=== PATIENT | male | born 1985 | race Hispanic/Latino ===

== ENCOUNTER → 2019-02-17 | Outpatient (CLI) | payer OTHER ==
[~2019-02-17] MED LIST: GASTROGRAFIN SOLUTION 30ML (Q9963) As Ordered ONE; ISOVUE-370 76% 100ML VIAL (Q9967) As Ordered ONE
--- NOTE | 2019-02-17 19:49 | REP ---
Clinical: Right upper quadrant pain. Technique: Axial pre and postcontrast images of the abdomen using oral and 100 ml Isovue 370 intravenous contrast material with coronal and sagittal re-formations. Findings: Lung bases are clear. Visualized heart and pericardium normal. Fatty infiltration to the liver noted without focal hepatic lesion. Spleen, pancreas, gallbladder, bilateral adrenal glands and kidneys are normal. Visualized enteric system is unremarkable. Normal terminal ileum and appendix are identified. No ascites. No free air. No adenopathy. Abdominal aorta and vasculature normal. Musculoskeletal structures intact. Impression: Hepatic steatosis. Electronically Signed by Rodolfo Hoover MD 02/17/2019 07:40 P
== END ==
LOC: M RAD 15:27
PROVIDERS: ATTEND Physician Assistant
DX: R10.11 Right upper quadrant pain (principal); K76.0 Fatty (change of) liver, not elsewhere classified
CPT/HCPCS: 74170; Q9963; Q9967

== ENCOUNTER 2019-05-05 12:34 | Day surgery (SDC) | payer OTHER ==
[~2019-05-05] VITALS: Ht 160 cm; Wt 91.2 kg
[~2019-05-05 12:34] MED LIST changes: +CELE1CAP7 PO; -GASTROGRAFIN SOLUTION 30ML (Q9963) As Ordered ONE; -ISOVUE-370 76% 100ML VIAL (Q9967) As Ordered ONE; +NS 1,000 ML IV ONE; +OMEP-221 PO
[2019-05-05] MEDS ORDERED: LIDOCAINE 2% INJ 100 MG/5 ML SDV (FOR ANES.) As Ordered ONE (13:06)
[2019-05-05] MEDS ORDERED: PROPOFOL 200 MG/20 ML VIAL As Ordered ONE (13:06)
[2019-05-05] MEDS ORDERED: fentaNYL 100 MCG/2 ML INJECTION (J3010) As Ordered ONE (13:58)
--- NOTE | 2019-05-05 14:12 | ROOR ---
Patient Name: Eddie Power Procedure Date: 05/05/2019 1:52 PM Date of : 1985 Age: 33 Room: [facility] Gender: Male Note Status: Finalized Procedure: Upper Endoscopy + Biopsies Indications: Abdominal pain in the right upper quadrant, Abdominal distention, Nausea Providers: Fei Villagomez MD Referring MD: ARAM HICKS MD Requesting Provider: Medicines: Monitored Anesthesia Care Complications: No immediate complications. Procedure: Pre-Anesthesia Assessment: - The heart rate, respiratory rate, oxygen saturations, blood pressure, adequacy of pulmonary ventilation, and response to care were monitored throughout the procedure. The Endoscope was introduced through the mouth, and advanced to the second part of duodenum. The upper GI endoscopy was accomplished without difficulty. The patient tolerated the procedure well. Findings: The Z-line was irregular and was found 40 cm from the incisors. Multiple biopsies were obtained with cold forceps for evaluation to rule out Sainz's Esophagus randomly at the gastroesophageal junction. Localized mild inflammation characterized by congestion (edema), erosions and erythema was found in the gastric antrum. Biopsies were taken with a cold forceps for Helicobacter pylori testing. The exam of the duodenum was otherwise normal. Impression: - Z-line irregular, 40 cm from the incisors. - Mucosal changes suspicious for gastritis. Biopsied. - Multiple biopsies were obtained at the gastroesophageal junction. - The examination was otherwise normal. Recommendation: - Patient has a contact number available for emergencies. The signs and symptoms of potential delayed complications were discussed with the patient. Return to normal activities tomorrow. Written discharge instructions were provided to the patient. - High fiber diet. - Discharge patient to home. - Continue present medications. - Await pathology results. - Telephone GI clinic for pathology results in 1 week. - Return to referring physician. - The findings and recommendations were discussed with the patient's family. Fei Villagomez MD Fei Villagomez MD 05/05/2019 2:11:50 PM Electronically signed by Fei Villagomez MD Number of Addenda: 0 Note Initiated On: 05/05/2019 1:52 PM Estimated Blood Loss: Estimated blood loss: none.
[2019-05-05 14:30] VITALS: BP 148/95
== END 2019-05-05 14:47 | disposition home or self-care (01) ==
LOC: M OPP 12:34
PROVIDERS: ATTEND Internal Medicine Gastroenterology
DX: K22.8 Other specified diseases of esophagus (principal); K31.89 Other diseases of stomach and duodenum; R10.11 Right upper quadrant pain; R14.0 Abdominal distension (gaseous); R11.0 Nausea; Z79.891 Long term (current) use of opiate analgesic; Z88.0 Allergy status to penicillin
CPT/HCPCS: 43239; 88305; J3010

== ENCOUNTER 2019-08-24 19:09 | Emergency (ER) | payer OTHER ==
[~2019-08-24] VITALS: Ht 160 cm; Wt 86.4 kg
[2019-08-24 19:09] VITALS: BP 189/110
[~2019-08-24 19:09] MED LIST changes: -NS 1,000 ML IV ONE
[2019-08-24] MEDS ORDERED: LISI10TA4 OR (19:29)
[2019-08-24] MEDS ORDERED: HYDR12CA OR (19:29)
== END 2019-08-24 21:18 | disposition left against medical advice (07) ==
LOC: M ED 19:09
DX: Z53.21 Procedure and treatment not carried out due to patient leaving prior to being seen by health care provider (principal)